=== PATIENT | female | born 1975 | race Caucasian/White ===

== ENCOUNTER 2024-08-24 18:54 | Emergency (ER) | payer OTHER ==
[~2024-08-24] VITALS: Ht 170.2 cm; Wt 68.0 kg
[2024-08-24] MEDS ORDERED: NICOTINE TRANSDERMAL 21 MG/PATCH TD ONE (19:25)
[2024-08-24] MEDS ORDERED: DiphenhydrAMINE HCL 50 MG/ML SDV IV ONE (21:05)
[2024-08-24] MEDS ORDERED: DEXAMETHASONE SODIUM PHOSPHATE 4 MG/VIAL SDV IV ONE (21:10)
[2024-08-24] MEDS ORDERED: methylPREDNISolone SODIUM SUCC 125 MG/2 ML SDV IM ONE (21:20)
[2024-08-24] MEDS ORDERED: DiphenhydrAMINE HCL 50 MG/ML SDV IM ONE (21:25)
[2024-08-24 22:40] VITALS: BP 113/73
[2024-08-24 22:45] VITALS: BP 114/68
[2024-08-24 23:00] VITALS: BP 118/72
[2024-08-24 23:16] VITALS: BP 105/66
[2024-08-24 23:30] VITALS: BP 100/66
[2024-08-24 23:45] VITALS: BP 100/66
== END 2024-08-24 23:45 | disposition short-term general hospital (02) | DRG 552 ==
LOC: ED 18:54
DX: S32.040A Wedge compression fracture of fourth lumbar vertebra, initial encounter for closed fracture (principal); W01.0XXA Fall on same level from slipping, tripping and stumbling without subsequent striking against object, initial encounter; Y93.89 Activity, other specified; Y92.59 Other trade areas as the place of occurrence of the external cause; Z91.014 Allergy to mammalian meats; Z86.73 Personal history of transient ischemic attack (TIA), and cerebral infarction without residual deficits

== ENCOUNTER 2024-08-27 14:22 | Emergency (ER) | payer OTHER ==
[~2024-08-27] VITALS: Ht 170.2 cm; Wt 71.5 kg
[2024-08-27 14:29] VITALS: BP 127/76
[2024-08-27 14:30] VITALS: BP 99/64
[2024-08-27 14:45] VITALS: BP 107/69
[2024-08-27] MEDS ORDERED: LIDOCAINE 5% TD (14:58)
[2024-08-27 15:00] VITALS: BP 104/80
[2024-08-27 15:15] VITALS: BP 111/75
== END 2024-08-27 15:16 | disposition home or self-care (01) | DRG 561 ==
LOC: ED 14:22
DX: S32.040D Wedge compression fracture of fourth lumbar vertebra, subsequent encounter for fracture with routine healing (principal); W19.XXXD Unspecified fall, subsequent encounter; Z91.014 Allergy to mammalian meats; Z86.73 Personal history of transient ischemic attack (TIA), and cerebral infarction without residual deficits; Z72.0 Tobacco use